=== PATIENT | female | born 1955 | race African-American/Black ===

== ENCOUNTER 2020-12-01 19:43 | Inpatient (IN) | payer MEDICARE, OTHER ==
[~2020-12-01] VITALS: Ht 162.6 cm; Wt 63.5 kg
[~2020-12-01 19:43] MED LIST: ARIP15TA3 PO; BENZ1TAB7 PO; MIRT-121 PO; NA P133E RC
[2020-12-01 20:13] LABS: BASOPHILS % (AUTO) 0.4 % (0.0-2.0); EOSINOPHILS % (AUTO) 1.6 % (0.0-6.0); HEMATOCRIT 43 % (33-45); HEMOGLOBIN 14.3 g/dL (11.5-14.8); LYMPHOCYTES # (AUTO) 3.5 /CMM (0.8-4.8); LYMPHOCYTES % (AUTO) 41.9 % (20.0-44.0); MEAN CORPUSCULAR HGB CONC 33 g/dl (31.0-36.0); MEAN CORPUSCULAR VOLUME 89 fL (82-100); MONOCYTES # (AUTO) 0.4 /CMM (0.1-1.30); MONOCYTES % (AUTO) 4.4 % (2.0-12.0); NEUTROPHILS # (AUTO) 4.3 /CMM (1.8-8.9); NEUTROPHILS % (AUTO) 51.7 % (43.0-81.0); PLATELET COUNT (AUTO) 215 /CMM (150-450); WHITE BLOOD COUNT (AUTO) 8.3 K/uL (4.3-11.0)
[2020-12-01 20:52] LABS: CALCIUM, SERUM 9.4 mg/dL (8.5-10.1); CARBON DIOXIDE 28 mmol/L (21-32); CHLORIDE 105 mmol/L (98-107); GLUCOSE 98 mg/dL (74-106); POTASSIUM 4.4 mmol/L (3.5-5.1); SODIUM SERUM 142 mmol/L (136-145); UREA NITROGEN, BLOOD 13 mg/dL (7-18)
--- NOTE | 2020-12-01 20:56 | NUR ---
Call from lab. Rapid covid negative.
[2020-12-01 20:58] LABS: ALANINE AMINOTRANSFERASE 16 U/L (12-78); ALBUMIN 4.2 g/dL (3.4-5.0); ALCOHOL, BLOOD < 3 mg/dL (0-0); ALKALINE PHOSPHATASE 65 U/L (46-116); ASPARTATE AMINOTRANSFERASE 18 U/L (15-37); BILIRUBIN,TOTAL 0.2 mg/dL (0.2-1.0); TOTAL PROTEIN, SERUM 8.2 g/dL (6.4-8.2)
[2020-12-01 21:30] LABS: ACETAMINOPHEN < 0 ug/ml (10-30)
[2020-12-01] MEDS ORDERED: DIVA-76 PO (21:40)
[2020-12-01] MEDS ORDERED: DIPH50CA37 MC (21:40)
[2020-12-01] MEDS ORDERED: HYDR-4303 PO (21:40)
[2020-12-01] MEDS ORDERED: RISP1TAB7 PO (21:40)
[2020-12-01] MEDS ORDERED: LORA-259 PO (21:40)
--- NOTE | 2020-12-01 22:27 | NUR ---
Pt to [facility] via doug.
[2020-12-01] MEDS ORDERED: HYDROCODONE/APAP 5/325MG TABLET PO PRN (23:00)
[2020-12-01] MEDS ORDERED: ACETAMINOPHEN 325 MG TABLET PO PRN (23:00)
[2020-12-01] MEDS ORDERED: MAGNESIUM HYDROXIDE 30 ML UDC PO PRN (23:00)
[2020-12-01] MEDS ORDERED: TEMAZEPAM 7.5 MG CAPSULE PO PRN (23:00)
[2020-12-01] MEDS ORDERED: BLOOD SUGAR DIAGNOSTIC 1 EACH STRIP IN ONE (23:00)
[2020-12-01] MEDS ORDERED: MAG HYDROX/AL HYDROX/SIMETH 30 ML UDC PO PRN (23:00)
[2020-12-01 23:06] VITALS: BP 107/64
[2020-12-01 23:34] VITALS: BP 107/64
--- NOTE | 2020-12-01 23:53 | NUR ---
ADMISSION NOTES: ADMITTED THIS 64Y/O FEMALE PATIENT ADMIT FROM [facility] ER /INTIALLY FROM [facility] [place], PT. ADMITTED TO GPS ON 5150 HOLD , PER HOLD PT. AGITATION, NON COMPLY WITH MEDS, SMOKING IN THE ROOM, RECKLESS BEHAVIOR AND SPEAKS ABOUT ANJALI , NOT FOLLWING DIRECTIONS FROM STAFF ,ASSAULTIVE TOWARDS STAFF ,UPON FACE TO FACE ASSESSMENT PATIENT IS A&O X 2,3 , DELUSIONAL EASILY AGITAED ,DISHELVED, ANXIOUS ,PARANOID , HYPERVERBAL TALKING TO SELF ABOUT ANJALI, DISORGNIZED ,DISHELVED ,EASILY GETS AGITATED,UNCOOPRTIVE ,DENIES SI /HI AT THIS TIME, PT. IS POOR HISTORIAN, POOR INSIGHT ,POOR JUDGEMENT , PT. REFUSED TO SIGNS ADMISSION CONSENT PAPERS , DUE TO MENTAL STATUS / CONFUSED ,BOTH MD AWARE AND NOTIFIED OF THE ADMISSION, BELONGINGS CONTRABAND WERE DONE ,PT. RIGHTS DISCUSS BY HAND DRY CLEANER , PROVIDE THE PT. WITH HANDBOOK, AND MEDICATIONS GUIDE, ENVIRONMENTAL SAFETY CHECK DONE, ENCOURAGED PT. VERBALIZED ANY FEELING CONCERN TO STAFF, ORIENT TO UNIT POLICY, NO ACUTE DISTRESS NOTED,VITAL SIGNS WNL ,DENIES ANY PAIN AT THIS TIME,WILL CONTINUE TO MONITOR FOR Q15 SAFETY AND BEHAVIOR.
[2020-12-02] MEDS: LORAZEPAM 0.5 MG TABLET PO PRN ×4 (02:40→22:00)
--- NOTE | 2020-12-02 02:41 | NUR ---
RN NOTES :ANXIETY PT.C/O FEELING ANXIOUS YELLING,HYPERVERBAL, ATIVAN 1 MG MG PO PRN GIVEN PER PT. REQUEST ,WILL CONTINUE TO MONITOR.
--- NOTE | 2020-12-02 06:27 | NUR ---
RN NOTES: PT. REFUSED AM LABS, PER PT, PT. BEHAVIOR UNCOOPERTIVE ,ANXIOUS, YELLING ,WILL CONTINUITY WITH CARE.
[2020-12-02 08:00] VITALS: BP 138/61
[2020-12-02] MEDS: NICOTINE PATCH (21MG) 21 MG PATCH.TD24 TD SCH (08:43)
--- NOTE | 2020-12-02 08:50 | NUR ---
MEDICATED FOR ANXIETY WITH ATIVAN.
--- NOTE | 2020-12-02 13:49 | NUR ---
GIVEN ATIVAN PO AGAIN FOR NERVOUSNESS.
[2020-12-02] MEDS: DIVALPROEX SODIUM 125 MG CAP.SPRINK PO SCH ×3 (15:41→21:00)
[2020-12-02 16:00] VITALS: BP 110/51
--- NOTE | 2020-12-02 16:28 | NUR ---
[facility].
[2020-12-02] MEDS: risperiDONE-M 0.5 MG TAB.RAPDIS PO SCH (17:00)
--- NOTE | 2020-12-02 17:30 | NUR ---
REFUSAL OF RISPERDAL.
[2020-12-02 20:55] VITALS: BP 101/59
--- NOTE | 2020-12-02 21:20 | NUR ---
RN NOTES: REFUSAL MEDICATION PT. REFUSED NIGHT SCHEDULE MEDS DEPAKOTE SPRINKLE PO, ENCOURAGED X3 STILL REFUSED , PER PT.I DON'T WANT TAKE ANY MEDICATIONS , BEHAVIOR UNCOOPERTIVE ,ANXIOUS, WILL CONTINUITY WITH CARE.
--- NOTE | 2020-12-02 22:01 | NUR ---
ANXIETY PT.C/O FEELING ANXIOUS YELLING,HYPERVERBAL, ATIVAN 1 MG MG PO PRN GIVEN, PER PT. REQUEST ,WILL CONTINUE TO MONITOR.
[2020-12-03] MEDS: ZOLPIDEM TARTRATE 5 MG TABLET PO PRN (00:55)
--- NOTE | 2020-12-03 00:56 | NUR ---
RN NOTES: INSOMNIA PT.C/O UNABLE TO SLEEP, AMBIEN 5 MG PO PRN GIVEN ,PER PT. REQUEST,WILL CONTINUE TO MONITOR.
[2020-12-03 08:00] VITALS: BP 110/63
[2020-12-03] MEDS: risperiDONE-M 0.5 MG TAB.RAPDIS PO SCH ×2 (08:48→16:45)
[2020-12-03] MEDS: DIVALPROEX SODIUM 125 MG CAP.SPRINK PO SCH ×2 (08:48→21:37)
[2020-12-03] MEDS: NICOTINE PATCH (21MG) 21 MG PATCH.TD24 TD SCH (08:52)
[2020-12-03 16:00] VITALS: BP 105/55
--- NOTE | 2020-12-03 16:15 | NUR ---
Phone call: JULIANN spoke to Luis Pfeiffer via phone 1615 pm regarding if the pt will be accepted back to the facility. Admission service representative is out of the office and left a message. Plan:JULIANN will follow up with the facility to verify the pt's re-admission back to the facility
[2020-12-03 16:23] LABS: CREATININE 0.9 mg/dL (0.6-1.3)
[2020-12-03 20:25] VITALS: BP 117/63
[2020-12-03] MEDS: LORAZEPAM 0.5 MG TABLET PO PRN (21:48)
--- NOTE | 2020-12-03 21:48 | NUR ---
GPS-RN NOTES: ANXIETY PATIENT C/O FEELING ANXIOUS AND REQUESTED FOR ATIVAN. PRN ATIVAN 1MG PO GIVEN. WILL CONTINUE TO MONITOR FOR PATIENT'S SAFETY.
[2020-12-04] MEDS: ZOLPIDEM TARTRATE 5 MG TABLET PO PRN ×2 (01:19→22:21)
--- NOTE | 2020-12-04 01:20 | NUR ---
GPS-RN NOTES: INSOMNIA PATIENT C/O INABILITY TO SLEEP. ADMINISTERED AMBIEN 5MG PO ORDERED. WILL CONTINUE TO MONITOR FOR PATIENT'S SAFETY.
[2020-12-04 08:00] VITALS: BP 110/63
[2020-12-04] MEDS: DIVALPROEX SODIUM 125 MG CAP.SPRINK PO SCH ×3 (08:41→21:12)
[2020-12-04] MEDS: risperiDONE-M 0.5 MG TAB.RAPDIS PO SCH ×3 (08:42→16:28)
[2020-12-04] MEDS: NICOTINE PATCH (21MG) 21 MG PATCH.TD24 TD SCH (08:42)
--- NOTE | 2020-12-04 08:55 | NUR ---
Phone call: JULIANN spoke to the brother (Sander Gann, and [phone]) via phone at 0855 am regarding the pt's history and discharge planning once the pt is medically discharge from the hospital. Plan: director of therapy services will be available upon request.
--- NOTE | 2020-12-04 09:00 | NUR ---
RN NOTE-PT CONFUSED REFUSING CARE AND MEDS, PARANOID GUARDED THOUGH DENYING ALL. PO INTAKE FAIR WITHDRAWN. ISOLATES IN BED. POOR INTERACTION
--- NOTE | 2020-12-04 09:44 | NUR ---
Initial Discharge Plan: Pt currently resides at [facility] [place] [address] . If the pt is not accepted back to current living facility, SW will work with the pt, support system (brother Jose L Gann [phone] or [phone]) and the MD appropriate discharged planning. SW will form a safe and proper discharge.
[2020-12-04] MEDS ORDERED: OLANZAPINE 10 MG VIAL IM STA (11:44)
--- NOTE | 2020-12-04 12:00 | NUR ---
RN NOTE- DR CAMP SAW PT AND SPOKE TO HER. REFUSES RX. YELLING AT MD. DR CAMP ORDERED ZYPREXA 10 MG IM STAT. COMPLIED WITH. ADMINISTERED W STAFF
--- NOTE | 2020-12-04 15:05 | NUR ---
Phone call: JULIANN spoke to VENU Luis Pfeiffer (Admissions -[phone]) SNF via phone at 1505 pm verifying pt's acceptance at facility once medically discharged from the hospital . Per pt will not be accepted back to the facility due behavior issues and a danger to others. Plan: Tea Bag Packer will coordinate with MD and support system (Brother Atilio Gann, ) to find a safe and alternate placement.
[2020-12-04 16:00] VITALS: BP 110/68
[2020-12-04 20:25] VITALS: BP 101/58
--- NOTE | 2020-12-04 22:22 | NUR ---
GPS-RN NOTES: INSOMNIA PATIENT C/O INABILITY TO SLEEP. ADMINISTERED AMBIEN 5MG PO ORDERED. WILL CONTINUE TO MONITOR FOR PATIENT'S SAFETY.
[2020-12-05] MEDS: LORAZEPAM 0.5 MG TABLET PO PRN ×2 (01:17→22:22)
--- NOTE | 2020-12-05 01:17 | NUR ---
GPS-RN NOTES: ANXIETY PATIENT C/O FEELING ANXIOUS AND REQUESTED FOR ATIVAN. PRN ATIVAN 1MG PO GIVEN. WILL CONTINUE TO MONITOR FOR PATIENT'S SAFETY.
[2020-12-05 08:00] VITALS: BP 112/66
[2020-12-05] MEDS: DIVALPROEX SODIUM 125 MG CAP.SPRINK PO SCH ×2 (08:12→20:59)
[2020-12-05] MEDS: risperiDONE-M 0.5 MG TAB.RAPDIS PO SCH ×2 (08:12→16:01)
[2020-12-05] MEDS: NICOTINE PATCH (21MG) 21 MG PATCH.TD24 TD SCH (08:14)
--- NOTE | 2020-12-05 09:00 | NUR ---
RN NOTE- PT RESPONDING, TALKING TO PEOPLE NOT IN THE ROOM, PARANOID GUARDED THOUGH DENYING ALL. PO INTAKE FAIR WITHDRAWN. ISOLATES IN BED. POOR INTERACTION THOUGH DID TAKE HER RX THIS MORNING
[2020-12-05 16:00] VITALS: BP 121/87
[2020-12-05 20:32] VITALS: BP 109/73
[2020-12-05] MEDS: ZOLPIDEM TARTRATE 5 MG TABLET PO PRN ×2 (22:16→23:28)
--- NOTE | 2020-12-06 06:07 | NUR ---
ANGRY THRU THE NIGHT. SLEPT AFTER THE AMBIEN GIVEN AND CONTINUES TO SLEEP AT 6AM AMBIEN EFFECTIVE. WHEN SHE IS AWAKE SHE IS PARINOED. SHE WILL BE HAVING A CONVERSATION WITH NO BODY, NODING HER HEAD AND APPEARS TO BE ANSWERING QUESTIONS ASKED
[2020-12-06 08:00] VITALS: BP 126/76
[2020-12-06] MEDS: DIVALPROEX SODIUM 125 MG CAP.SPRINK PO SCH ×2 (08:54→21:00)
[2020-12-06] MEDS: NICOTINE PATCH (21MG) 21 MG PATCH.TD24 TD SCH (08:54)
[2020-12-06] MEDS: risperiDONE-M 0.5 MG TAB.RAPDIS PO SCH ×2 (08:54→16:54)
[2020-12-06] MEDS: LORAZEPAM 0.5 MG TABLET PO PRN ×2 (15:37→22:18)
--- NOTE | 2020-12-06 15:37 | NUR ---
RN NOTE PATIENT IS FEELING ANXIOUS, ATIVAN IS GIVEN NEEDED.
[2020-12-06 20:15] VITALS: BP 97/68
[2020-12-06 20:56] VITALS: BP 97/68
--- NOTE | 2020-12-06 21:12 | NUR ---
RN NOTE: PT. REFUSED WEEKLY SKIN ASSESSMENT X 3, STATED," MY SKIN IS GOOD, I TAKE GOOD CARE OF MYSELF." DESPITE OF RISKS & BENEFITS EXPLANATIONS, PT. CONTINUED TO REFUSED SKIN ASSESSMENT.
--- NOTE | 2020-12-06 21:15 | NUR ---
RN NOTE; REFUSED SKIN ASSESSMENT PATIENT REFUSED WEEKLY SKIN ASSESSMENT, STATED," MY SKIN IS GOOD," & CONTINUED TO REFUSE, EASILY AGITATED & ANXIOUS. PATIENT WANTS TO SLEEP & DOES NOT WANT TO BE BOTHERED.
--- NOTE | 2020-12-06 21:27 | NUR ---
RN NOTE: REFUSED DEPAKOTE SPRINKLES CAP PATIENT REFUSED DEPAKOTE 250 MG PO SCHEDULED AT 2100 DESPITE OF RISKS & BENEFIT EXPLANATIONS, PT. STATED," LET ME SLEEP, DON'T BOTHER ME & COVERED HER FACE WITH THE BLANKET." WILL CONTINUE TO MONITOR.
--- NOTE | 2020-12-06 22:19 | NUR ---
RN NOTE: ANXIETY PATIENT IS ANXIOUS, RESTLESS, DELUSIONAL, HYPERVERBAL, TALKING TO HERSELF, PT. REQUESTED TO TAKE ATIVAN AT THIS TIME. PRN ATIVAN 1 MG PO GIVEN . PT. EATING HER SNACK AT THIS TIME. WILL CONTINUE TO MONITOR.
[2020-12-06 23:30] VITALS: BP 106/73
[2020-12-06] MEDS: ZOLPIDEM TARTRATE 5 MG TABLET PO PRN (23:38)
--- NOTE | 2020-12-06 23:39 | NUR ---
RN NOTE: INSOMNIA PATIENT IS AWAKE, VERBALIZED THAT SHE IS UNABLE TO SLEEP & REQUESTED TO TAKE HER SLEEPING MEDICINE. VITALS WNL. PRN AMBIEN 5 MG PO GIVEN. WILL CONTINUE TO MONITOR.
[2020-12-07 08:00] VITALS: BP 107/73
[2020-12-07] MEDS: NICOTINE PATCH (21MG) 21 MG PATCH.TD24 TD SCH (09:00)
[2020-12-07] MEDS: DIVALPROEX SODIUM 125 MG CAP.SPRINK PO SCH ×2 (10:23→21:56)
--- NOTE | 2020-12-07 13:16 | NUR ---
Probable Cause Hearing: Pts [id number] hold was upheld for grave disability.
[2020-12-07 16:00] VITALS: BP 109/72
[2020-12-07] MEDS: risperiDONE-M 0.5 MG TAB.RAPDIS PO SCH (16:54)
[2020-12-07] MEDS: ZOLPIDEM TARTRATE 5 MG TABLET PO PRN (21:56)
[2020-12-08 08:00] VITALS: BP 103/66
[2020-12-08] MEDS: NICOTINE PATCH (21MG) 21 MG PATCH.TD24 TD SCH (08:43)
[2020-12-08] MEDS: DIVALPROEX SODIUM 125 MG CAP.SPRINK PO SCH ×2 (08:49→21:05)
[2020-12-08] MEDS: risperiDONE-M 0.5 MG TAB.RAPDIS PO SCH ×2 (08:49→17:30)
[2020-12-08] MEDS: LORAZEPAM 0.5 MG TABLET PO PRN ×2 (08:49→21:31)
--- NOTE | 2020-12-08 08:49 | NUR ---
GIVEN ATIVAN FOR ANXIETY.
--- NOTE | 2020-12-08 11:10 | NUR ---
SNF Contact: JULIANN contacted VENU ([phone]) from [facility] who stated that the pt will not be accepted back and their directors will reroute the pt to an alternate facility.
--- NOTE | 2020-12-08 11:15 | NUR ---
SNF Referral: JULIANN faxed a referral to [facility] with attn to Trent to the fax number: [phone].
--- NOTE | 2020-12-08 13:30 | NUR ---
QUIET,RESTING IN BED.NO COMPLAINTS OFFERED.
[2020-12-08 16:00] VITALS: BP 98/57
--- NOTE | 2020-12-08 18:52 | NUR ---
VERY COOPERATIVE AND MED COMPLIANT.
[2020-12-08 20:58] VITALS: BP 105/64
--- NOTE | 2020-12-09 06:46 | NUR ---
GPS RN CLOSING NOTES: PATIENT LAYING COMFORTABLE ON BED. SLEPT 9HOURS THIS SHIFT. NO BEHAVIORAL ISSUES THIS SHIFT. NO S/S OF DISTRESS. NO C/O PAIN. RESPIRATION EVEN AND UNLABORED WITH EQUAL RISE AND FALL OF THE CHEST ON ROOM AIR. OFFERED FLUID AND SNACKS TOLERATED THIS SHIFT. ALL PATIENT CARE NEEDS HAVE BEEN MET ANTICIPATED. WILL CONTINUE TO MONITOR FOR SAFETY, MOOD AND BEHAVIOR AND ENDORSE TO AM SHIFT.
[2020-12-09 08:00] VITALS: BP 101/71
[2020-12-09] MEDS: DIVALPROEX SODIUM 125 MG CAP.SPRINK PO SCH ×2 (08:36→21:38)
[2020-12-09] MEDS: risperiDONE-M 0.5 MG TAB.RAPDIS PO SCH ×2 (08:37→17:09)
[2020-12-09] MEDS: NICOTINE PATCH (21MG) 21 MG PATCH.TD24 TD SCH (08:37)
--- NOTE | 2020-12-09 09:00 | NUR ---
RN NOTE- PT ALERT ORIENTED PERSON PLACE. PARANOID GUARDED, PO INTAKE GOOD MED COMPLIANT DENIES SI HI AH VH . PT INTERNALLY PREOCCUPIED RESPONDING TO INTERNAL STIMULUS
--- NOTE | 2020-12-09 11:02 | NUR ---
SNF Contact: JULIANN faxed a clearance to [facility] with attn to Renee to the fax number: [phone].
[2020-12-09 16:00] VITALS: BP 107/72
[2020-12-09 20:20] VITALS: BP 112/69
[2020-12-09] MEDS: LORAZEPAM 0.5 MG TABLET PO PRN (22:25)
--- NOTE | 2020-12-09 22:30 | NUR ---
GPS RN NOTES: PATIENT ASKED FOR ATIVAN D/T ANXIETY. ATIVAN 0.5MG 2TAB/1MG GIVEN PO PRN ORDERED AT 2225. PATIENT IS CURRENTLY LAYING ON BED, NO S/S OF DISTRESS, RESPIRATION EVEN AND UNLABORED WITH EQUAL RISE AND FALL OF THE CHEST ON ROOM AIR. WILL CONTINUE TO MONITOR.
[2020-12-09] MEDS: ZOLPIDEM TARTRATE 5 MG TABLET PO PRN (23:36)
--- NOTE | 2020-12-09 23:40 | NUR ---
GPS RN NOTES: PATIENT REQUESTED FOR SLEEP MEDICATION. AMBIEN 5MG/1TAB GIVEN PO PRN FOR SLEEP AT 2336. WILL CONTINUE TO MONITOR
--- NOTE | 2020-12-10 06:45 | NUR ---
GPS RN NOTES: COVID-19 ANTIGEN SWAB FOR DISCHARGE PLACEMENT DONE, SAMPLE DELIVERED TO THE LABORATORY.
--- NOTE | 2020-12-10 06:48 | NUR ---
GPS RN CLOSING NOTES: PATIENT AWAKE, A/O X2. PATIENT SLEPT 6HOURS THIS SHIFT. NO BEHAVIORAL ISSUES THIS SHIFT. NO S/S OF DISTRESS. NO C/O PAIN. RESPIRATION EVEN AND UNLABORED WITH EQUAL RISE AND FALL OF THE CHEST ON ROOM AIR. OFFERED FLUID AND SNACKS TOLERATED THIS SHIFT. ALL PATIENT CARE NEEDS MET ANTICIPATED. WILL CONTINUE TO MONITOR FOR SAFETY, MOOD AND BEHAVIOR AND ENDORSE TO AM SHIFT.
[2020-12-10 08:00] VITALS: BP 116/71
[2020-12-10] MEDS: risperiDONE-M 0.5 MG TAB.RAPDIS PO SCH (08:30)
[2020-12-10] MEDS: DIVALPROEX SODIUM 125 MG CAP.SPRINK PO SCH (08:31)
[2020-12-10] MEDS: NICOTINE PATCH (21MG) 21 MG PATCH.TD24 TD SCH (08:31)
--- NOTE | 2020-12-10 08:58 | NUR ---
Dr. Wyman gave an order to D/C hold and D/C to [facility], to continue same meds including prn and to follow up with the psych and medical doctors. Addendum: 12/10/20 at 1001 by LAURA ZAYAS RN Dr. dangelo made aware of the discharge and reconciled the meds.
--- NOTE | 2020-12-10 09:32 | NUR ---
Pt. without distress, denies suicidal and homicidal. Belongings ready, discharge papers ready and report given to Shay LANTIGUA) over the facility.
--- NOTE | 2020-12-10 11:52 | NUR ---
Discharge Note: Pt will be discharged to [facility] ([facility]) [place] [address] [place] [address]; ([phone]). Pt will be transported via Amb[facility] at 11AM. Pt does not have anyone for the SW to inform of the discharge. Upon discharge, pt appears to be in a dysphoric mood and presented with a labile affect. Pt denies both suicidal and homicidal ideation as well as auditory and visual hallucinations. Pt appears to be alert and oriented x3 (time, place, and self). Pt appears to be ambulatory with an unsteady gait. Pt appears to be disheveled yet appropriately dressed. Pt will continue to be under the care of psychiatrist, Dr. Wyman, located at [address], [address] [place] [address]; and straight cutter, Dr. Sandy, located at [address] [place] [address]; . Pt was provided with substance abuse referrals and a copy was placed in the pts chart. The Choice of vendor form and the multidisciplinary exit care form was done, printed, signed, and given to the patient.
--- NOTE | 2020-12-10 12:25 | NUR ---
Pt. left the unit via ambulance with belongings and transported via a gurney. Left without distress, V/S taken: BP 137/79, PA 91, temp 97.8, RR 18, oxygen sat 92%.
== END 2020-12-10 12:25 | DRG 885 ==
LOC: ER 19:47 → GPS 21:03
PROVIDERS: ADMIT Psychiatry & Neurology Psychiatry; ATTEND Nurse Practitioner Acute Care
DX: F25.0 Schizoaffective disorder, bipolar type (principal); F41.9 Anxiety disorder, unspecified; G47.00 Insomnia, unspecified; F17.210 Nicotine dependence, cigarettes, uncomplicated; Z73.6 Limitation of activities due to disability; F39 Unspecified mood [affective] disorder; Z20.822 Contact with and (suspected) exposure to COVID-19; F29 Unspecified psychosis not due to a substance or known physiological condition
CPT/HCPCS: 36415; 80048-TC; 80061-TC; 80076-TC; 82565-TC; 82962-TC; 85025-TC; 87081-TC; C9803; G0480; J3490

== ENCOUNTER 2021-02-15 16:44 | Inpatient (IN) | payer MEDICARE, OTHER ==
[~2021-02-15] VITALS: Ht 167.6 cm; Wt 68.0 kg
[~2021-02-15 16:44] MED LIST changes: -ARIP15TA3 PO; -BENZ1TAB7 PO; +DIPH50CA37 MC; +DIVA-76 PO; +HYDR-4303 PO; +LORA-259 PO; -MIRT-121 PO; -NA P133E RC; +RISP1TAB7 PO
--- NOTE | 2021-02-15 16:44 | NUR ---
PT BIBPA FROM CARE FACILITY C/O AGGRESSIVE BEHAVIOR TOWARDS STAFF. PT IS AAOX3, NOT IN RESPIRATORY DISTRESS, V/S STABLE, KEPT RESTED AND COMFORTABLE. WILL CONTINUE TO MONITOR.
[2021-02-15] MEDS ORDERED: MAG30ORA PO (16:51)
[2021-02-15] MEDS ORDERED: MAGN400O6 PO (16:51)
[2021-02-15] MEDS ORDERED: ACET-868 PO (16:51)
[2021-02-15] MEDS ORDERED: RISP0.2515 PO (16:51)
--- NOTE | 2021-02-15 17:20 | NUR ---
URINE SPECIMEN COLLECTED AND SENT TO LAB.
[2021-02-15 17:29] LABS: BILIRUBIN,URINE Negative (NEGATIVE); COLOR,URINE YELLOW (YELLOW); LEUKOCYTE ESTERASE ,URINE Moderate (NEGATIVE); NITRITE, URINE Negative (NEGATIVE); PROTEIN,URINE Negative (NEGATIVE); UGLUCOSE Negative (NEGATIVE); UROBILINOGEN,URINE 0.2 EU/dL (0.2)
--- NOTE | 2021-02-15 17:30 | NUR ---
ER PHLEB AT BEDSIDE FOR BLOOD DRAW.
[2021-02-15 17:38] LABS: BASOPHILS % (AUTO) 0.5 % (0.0-2.0); HEMATOCRIT 42 % (33-45); LYMPHOCYTES # (AUTO) 2.9 /CMM (0.8-4.8); LYMPHOCYTES % (AUTO) 38.3 % (20.0-44.0); MEAN CORPUSCULAR HGB CONC 33 g/dl (31.0-36.0); MEAN CORPUSCULAR VOLUME 89 fL (82-100); MONOCYTES # (AUTO) 0.4 /CMM (0.1-1.30); MONOCYTES % (AUTO) 5.1 % (2.0-12.0); NEUTROPHILS # (AUTO) 4.1 /CMM (1.8-8.9); NEUTROPHILS % (AUTO) 55.1 % (43.0-81.0); PLATELET COUNT (AUTO) 188 /CMM (150-450); RED BLOOD CELL COUNT(AUTO) 4.76 MIL/uL (4.0-5.2); WHITE BLOOD COUNT (AUTO) 7.5 K/uL (4.3-11.0)
[2021-02-15 17:41] LABS: BACTERIA,URINE Few /HPF (None Seen); RBC,URINE 0-2 /HPF (0-2); SQUAMOUS EPITHELIAL CELL,UR Few /HPF (None Seen)
--- NOTE | 2021-02-15 17:55 | NUR ---
CALLED SIMRAN FOR INTAKE OF BED 9 PT. SHE WILL BE IN THE ER IN 60 MIN.
[2021-02-15 17:59] LABS: ALANINE AMINOTRANSFERASE 21 U/L (12-78); ALKALINE PHOSPHATASE 54 U/L (46-116); ASPARTATE AMINOTRANSFERASE 18 U/L (15-37); BILIRUBIN,TOTAL 0.3 mg/dL (0.2-1.0); CALCIUM, SERUM 9.4 mg/dL (8.5-10.1); CARBON DIOXIDE 27 mmol/L (21-32); CHLORIDE 105 mmol/L (98-107); CREATININE 0.9 mg/dL (0.6-1.3); GLUCOSE 87 mg/dL (74-106); POTASSIUM 4.2 mmol/L (3.5-5.1); SODIUM SERUM 141 mmol/L (136-145); TOTAL PROTEIN, SERUM 8.2 g/dL (6.4-8.2); UREA NITROGEN, BLOOD 13 mg/dL (7-18)
[2021-02-15 18:00] LABS: ACETAMINOPHEN < 0 ug/ml (10-30); ALCOHOL, BLOOD < 3 mg/dL (0-0)
--- NOTE | 2021-02-15 18:27 | NUR ---
LAB CALLED, COVID NEG
--- NOTE | 2021-02-15 18:35 | NUR ---
room 211-A
--- NOTE | 2021-02-15 18:45 | NUR ---
SIMRAN SABA CRISIS INVESTIGATIVE SHOPPER AT BEDSIDE FOR EVAL.
--- NOTE | 2021-02-15 18:56 | NUR ---
REPORT GIVEN TO JAYANT FELIX OF GPS FOR OTONIEL.
[2021-02-15] MEDS ORDERED: MAGNESIUM HYDROXIDE 30 ML UDC PO PRN (19:30)
[2021-02-15] MEDS ORDERED: BLOOD SUGAR DIAGNOSTIC 1 EACH STRIP IN ONE (20:00)
[2021-02-15] MEDS: CEPHALEXIN MONOHYDRATE 500 MG CAPSULE PO SCH (21:34)
[2021-02-15 22:00] VITALS: BP 135/76
--- NOTE | 2021-02-16 00:15 | NUR ---
ADMISSION NOTES: ADMITTED THIS 65Y/O FEMALE PATIENT DIRECT ADMIT FROM [facility], PT. ADMITTED TO GPS ON HOLD 515 DTO, INCREASED AGITATION AND AGGRESSIVE BEHAVIOR,THREATING STAFF ,VERBAL ABUSIVE, SCREAMING YELLING,UNABLE REDIRECT,UPON FACE TO FACE ASSESSMENT PATIENT IS A&O X 3 ANXIOUS,UNCOOPERTIVE ,DISORGNIZED, DISHEVELLED ,HYPERVERBAL TALIKG TO SELF,NEEDY DEMEDING, DENIES SI /HI AT THIS TIME, PT. IS POOR HISTORIAN, POOR INSIGHT ,POOR JUDGEMENT , PT. REFUSED TO SIGNS ADMISSION CONSENT PAPERS ,DUE TO UNCOOPERTIVE , BOTH MD AWARE AND NOTIFIED OF THE ADMISSION, BELONGINGS CONTRABAND WERE DONE ,PT. RIGHTS DISCUSS BY POULTRY FIELD SERVICE TECHNICIAN , PROVIDE THE PT. WITH HANDBOOK, AND MEDICATIONS GUIDE, ENVIRONMENTAL SAFETY CHECK DONE, ENCOURAGED PT. VERBALIZED ANY FEELING CONCERN TO STAFF, ORIENT TO UNIT POLICY, NO ACUTE DISTRESS NOTED,VITAL SIGNS WNL ,DENIES ANY PAIN AT THIS TIME,WILL CONTINUE TO MONITOR FOR Q15 SAFETY AND BEHAVIOR. Addendum: 02/16/21 at 0032 by BETSY MARIN RN CORRECTION : ADMITTED THIS 65/O FEMALE PATIENT FORM SOH /ER, PT. INTIALLY FROM [facility]. PT. ADMITTED TO [facility] 5150 GD, DTO . PT. IS NOT DIRECT ADMIT FROM [facility] .
--- NOTE | 2021-02-16 06:44 | NUR ---
RN NOTES: PT. REFUSED SKIN ASSESSMENT AND PICTURES, ENCOURAGED X3 RISKS AND BENEFITS EXPLINED , PT.STILL REFUSED ,PER PT. MY SKIN IS INTACT, WILL CONTINUE WITH PLAN OF CARE.
[2021-02-16 08:00] VITALS: BP 115/71
[2021-02-16] MEDS: CEPHALEXIN MONOHYDRATE 500 MG CAPSULE PO SCH ×2 (09:31→20:37)
[2021-02-16] MEDS: LORAZEPAM 0.5 MG TABLET PO PRN (09:37)
[2021-02-16] MEDS: DIVALPROEX SODIUM 125 MG CAP.SPRINK PO SCH ×3 (13:00→20:37)
[2021-02-16] MEDS ORDERED: DIVALPROEX SODIUM 125 MG CAP.SPRINK PO SCH (13:00)
[2021-02-16] MEDS: risperiDONE-M 0.5 MG TAB.RAPDIS PO SCH ×3 (13:00→17:00)
--- NOTE | 2021-02-16 15:34 | NUR ---
RN NOTE- PT ESCALATION, SCREAMING YELLING AND POSTURING. PT NOT DIRECTABLE. QUANTITATIVE RESEARCHER OFFERED PRN PO RX. PT REFUSES. DR CAMP NOTIFIED. DR CAMP ORDERED ZYPREXA 10 MG AND ATIVAN 2 MG IM STAT. ORDERS COMPLIED WITH. EMERGENCY RX ADMINISTERED W STAFF ASSIST .
[2021-02-16] MEDS ORDERED: OLANZAPINE 10 MG VIAL IM STA (15:37)
[2021-02-16] MEDS ORDERED: LORAZEPAM INJ 2 MG/ML VIAL IM STA (15:37)
--- NOTE | 2021-02-16 15:50 | NUR ---
yelling out loudly and talking to self.dr. miller contacted injections of ativan and zyprexa ordered and given.
[2021-02-16 16:00] VITALS: BP 119/79
--- NOTE | 2021-02-16 18:44 | NUR ---
RESTING IN BED IN RM.
[2021-02-16 20:14] VITALS: BP 145/73
[2021-02-17 08:00] VITALS: BP 96/68
[2021-02-17 09:00] VITALS: BP 93/56
[2021-02-17] MEDS: DIVALPROEX SODIUM 125 MG CAP.SPRINK PO SCH ×2 (09:00→20:33)
[2021-02-17] MEDS: risperiDONE-M 0.5 MG TAB.RAPDIS PO SCH ×2 (09:00→17:00)
--- NOTE | 2021-02-17 10:00 | NUR ---
risperdal and depakote held as bp low see graphic.
[2021-02-17] MEDS: CEPHALEXIN MONOHYDRATE 500 MG CAPSULE PO SCH ×2 (10:17→20:29)
--- NOTE | 2021-02-17 10:18 | NUR ---
SNF Contact: JULIANN contacted Renee ([phone]) from [facility] and confirmed that the pt can return to their facility once she is discharged from the hospital.
--- NOTE | 2021-02-17 11:15 | NUR ---
NOT EATING ORDERED LUNCH.RN OFFERED PT. SOMETHING ELSE.PT.AGEEEABLE.ENCOURAGED TO DRINK MORE FLUIDS.PT. AGREED.
[2021-02-17 11:30] VITALS: BP 92/64
--- NOTE | 2021-02-17 11:30 | NUR ---
DR. CAMP HERE AND MADE AWARE NO PSYCH MEDS GIVEN THIS MORNING BP LOW.STATES HE WILL REVIEW CHART.
--- NOTE | 2021-02-17 12:00 | NUR ---
PT. REQUESTED SOC. SERVICE CONTACT HER BROTHER JOSEPH.KARTIK INFORMED.
--- NOTE | 2021-02-17 12:32 | NUR ---
Family Contact: SW contacted the pts brother, Sander ([phone]), who stated that he wanted the pt to be closer to him in [place] but understands if that cannot be done due to her behaviors. SW stated that she is being accepted back to her previous facility and the pts brother stated that she should return there.
[2021-02-17 16:00] VITALS: BP 98/66
--- NOTE | 2021-02-17 17:03 | NUR ---
Initial Discharge Plan: Pt currently resides at [facility] located at [address] [place] [id number]; ([phone]). Per pt, she would like to return to her home. SW will work with the pt and the MD regarding appropriate discharge planning. SW will form a safe and proper discharge.
--- NOTE | 2021-02-17 17:25 | NUR ---
bp low,risperdal held.
[2021-02-17 20:22] VITALS: BP 93/61
--- NOTE | 2021-02-17 20:33 | NUR ---
GPS/PMO PROJECT MANAGER NOTES: PT. REFUSED HS DIVALPROEX 250MG PO ORDERED. PT. STATED " ITS POISON." OFFERED 3X. EXPLAINED RISK AND BENEFITS. PT. STILL REFUSED.
[2021-02-18 08:00] VITALS: BP 114/60
[2021-02-18] MEDS: CEPHALEXIN MONOHYDRATE 500 MG CAPSULE PO SCH ×2 (08:34→21:09)
[2021-02-18] MEDS: DIVALPROEX SODIUM 125 MG CAP.SPRINK PO SCH ×2 (08:39→21:10)
[2021-02-18] MEDS: risperiDONE-M 0.5 MG TAB.RAPDIS PO SCH ×2 (08:39→17:00)
[2021-02-18] MEDS: LORAZEPAM 0.5 MG TABLET PO PRN (08:44)
--- NOTE | 2021-02-18 08:45 | NUR ---
RN-NOTES PATIENT SELECTIVE WITH MEDICATIONS, EXPLAINED RISK AND BENEFITS BUT PATIENT GETS ANGRY,YELLING AND ARGUMENTATIVE WITH THE TUTOR. STATED" I ONLY TAKE ATB ,I DON'T HAVE TO TAKE ANY MEDICATIONS BECAUSE I DON'T HAVE PROBLEMS WITH MY MOOD, JUST GIVE ME MY ANXIETY MEDICATIONS".ATIVAN 1MG P.O GIVEN PRN ORDER.WILL CONT. MONITORING FOR SAFETY AND BEHAVIOR.
--- NOTE | 2021-02-18 09:40 | NUR ---
RN-NOTES PATIENT LYING IN BED AWAKE,ALERT CALM,NO ACUTE DISTRESS NOTED.
[2021-02-18] MEDS ORDERED: OLANZAPINE 10 MG VIAL IM STA (11:59)
--- NOTE | 2021-02-18 12:00 | NUR ---
RN-NOTES PATIENT SCREAMING AND YELLING AT THE PSYCHIATRIST CONRADO YEUNG WHILE EXPLAINING MEDICATIONS TO HER. DR. CAMP GAVE VERBAL ORDER OF ZYPREXA 10MG IM STAT.NOTED AND CARRIED OUT.
--- NOTE | 2021-02-18 17:14 | NUR ---
RN-NOTES PATIENT RISPERDAL 2MG P.O, EXPLAINED RISK AND BENEFITS BUT PATIENT GETS ANGRY,YELLING AND ARGUMENTATIVE WITH THE SENIOR COPYWRITER. STATED" GET AWAY ,I DON'T HAVE TO TAKE ANY MEDICATIONS BECAUSE I DON'T HAVE PROBLEMS ".OFFERED X3
[2021-02-18 22:25] VITALS: BP 138/76
[2021-02-19 08:00] VITALS: BP 90/52
[2021-02-19] MEDS: CEPHALEXIN MONOHYDRATE 500 MG CAPSULE PO SCH ×2 (08:16→20:19)
[2021-02-19] MEDS: DIVALPROEX SODIUM 125 MG CAP.SPRINK PO SCH ×2 (09:00→20:20)
[2021-02-19] MEDS: risperiDONE-M 0.5 MG TAB.RAPDIS PO SCH ×2 (09:00→17:00)
--- NOTE | 2021-02-19 09:51 | NUR ---
RN-NOTES PATIENT SELECTIVE WITH MEDICATIONS, EXPLAINED RISK AND BENEFITS BUT PATIENT GETS ANGRY AND ARGUMENTATIVE WITH THE SALES OPERATIONS SPECIALIST. STATED" I DON'T HAVE PROBLEMS WITH MY MOOD". OFFERED X3
--- NOTE | 2021-02-19 11:36 | NUR ---
RN-NOTES PATIENT REFUSED LAB DRAW DESPITE EXPLANATION RISK AND BENEFITS. DID FEW ATTEMPTS BUT STILL REFUSED.
[2021-02-19 16:03] VITALS: BP 101/57
--- NOTE | 2021-02-19 17:45 | NUR ---
RN-NOTES PATIENT RISPERDAL 2MG P.O.OFFERED X3
[2021-02-19 20:19] VITALS: BP 102/62
[2021-02-20 08:00] VITALS: BP 103/63
[2021-02-20] MEDS: DIVALPROEX SODIUM 125 MG CAP.SPRINK PO SCH ×2 (08:16→21:00)
[2021-02-20] MEDS: CEPHALEXIN MONOHYDRATE 500 MG CAPSULE PO SCH (08:16)
[2021-02-20] MEDS: risperiDONE-M 0.5 MG TAB.RAPDIS PO SCH ×2 (08:16→17:13)
[2021-02-20 16:00] VITALS: BP 101/65
[2021-02-20 19:52] VITALS: BP 114/57
[2021-02-20 20:00] VITALS: BP 114/57
--- NOTE | 2021-02-20 21:00 | NUR ---
NURSES NOTES: PATIENT REFUSED HER DEPAKOTE SPRINKLE 250 MG PER PATIENT, THAT CONTAINS ACID I DON'T NEED ACID IN MY LIFE. PATIENT HOWEVER REQUESTED FOR HER SLEEPING MEDICATION. AMBIEN 5 MG GIVEN ORALLY PRN ORDER. WILL CONTINUE TO MONITOR.
[2021-02-20] MEDS: ZOLPIDEM TARTRATE 5 MG TABLET PO PRN (21:14)
[2021-02-20] MEDS: LORAZEPAM 0.5 MG TABLET PO PRN (22:37)
[2021-02-20 22:39] VITALS: BP 101/73
--- NOTE | 2021-02-20 22:44 | NUR ---
NURSES NOTES: JANI REQUESTED FOR ATIVAN MEDICATION. SHE STATED THAT SHE IS FEELING ANXIOUS AT THIS MOMENT. ATIVAN 1M G GIVEN ORALLY PRN MEDICATION. WILL MONITOR PATIENT.
--- NOTE | 2021-02-21 06:43 | NUR ---
NURSES NOTES: PATIENT IN HER ROOM, ASLEEP AND RESTING COMFORTABLY, NO COMPLAINS OF PAIN OR DISCOMFORT THIS TIME. BED ALARM KEPT ON. WILL ENDORSE PATIENT'S CARE TO DAY SHIFT NURSE.
[2021-02-21 08:00] VITALS: BP 96/59
[2021-02-21] MEDS: DIVALPROEX SODIUM 125 MG CAP.SPRINK PO SCH ×2 (09:00→20:56)
[2021-02-21] MEDS: risperiDONE-M 0.5 MG TAB.RAPDIS PO SCH ×2 (09:00→17:00)
[2021-02-21 16:00] VITALS: BP 104/60
[2021-02-21 20:39] VITALS: BP 123/53
[2021-02-21] MEDS: ZOLPIDEM TARTRATE 5 MG TABLET PO PRN (21:32)
--- NOTE | 2021-02-21 21:33 | NUR ---
RN NOTES: INSOMNIA PT. C/O UNABLE TO SLEEP , PRN AMBIEN 5MG PO GIVEN PER PT. REQUEST, WILL CONTINUE TO MONITOR.
--- NOTE | 2021-02-21 21:47 | NUR ---
RN NOTES: PT. REFUSED WEEKLY SKIN REASSESSMENT AND PICTURES, ENCOURAGED X3 RISKS AND BENEFITS EXPLINED , PT.STILL REFUSED ,PER PT. BEHAVIOR VERY UNCOOPERTIVE, WILL CONTINUE WITH PLAN OF CARE.
[2021-02-21] MEDS: LORAZEPAM 0.5 MG TABLET PO PRN (23:14)
--- NOTE | 2021-02-21 23:16 | NUR ---
RN NOTES: ANXIETY PATIENT C/O FEELING ANXIOUS, HYPERVERBAL , PARANOID ,PRN ATIVAN 1 MG PO GIVEN. WILL CONTINUE TO MONITOR FOR PATIENT'S SAFETY AN D BEHAVIOR.
[2021-02-22 08:00] VITALS: BP 124/82
[2021-02-22] MEDS: risperiDONE-M 0.5 MG TAB.RAPDIS PO SCH ×2 (09:08→16:07)
[2021-02-22] MEDS: DIVALPROEX SODIUM 125 MG CAP.SPRINK PO SCH ×2 (09:08→20:39)
[2021-02-22] MEDS: LORAZEPAM 0.5 MG TABLET PO PRN (09:08)
[2021-02-22] MEDS ORDERED: OLANZAPINE 10 MG VIAL IM PRN (10:30)
[2021-02-22 16:00] VITALS: BP 103/53
[2021-02-22 19:59] VITALS: BP 95/67
[2021-02-22] MEDS: ZOLPIDEM TARTRATE 5 MG TABLET PO PRN (21:30)
--- NOTE | 2021-02-22 21:30 | NUR ---
GPS-RN NOTES: INSOMNIA PATIEN C/O INABILITY TO SLEEP. PRN AMBIEN 5MG PO GIVEN. WILL CONTINUE TO MONITOR.
[2021-02-23 08:00] VITALS: BP 111/73
[2021-02-23] MEDS: DIVALPROEX SODIUM 125 MG CAP.SPRINK PO SCH ×2 (09:46→20:43)
[2021-02-23] MEDS: risperiDONE-M 0.5 MG TAB.RAPDIS PO SCH ×2 (09:56→18:04)
[2021-02-23 16:00] VITALS: BP 98/59
[2021-02-23 17:00] VITALS: BP 120/57
[2021-02-23 19:41] VITALS: BP 99/60
--- NOTE | 2021-02-23 20:10 | NUR ---
RN NOTES: PT.RESTING IN HER ROOM ,AWAKE ALERT, PATIENT IS RISED , WILL CONTINUITY WITH CARE.
[2021-02-23 21:45] VITALS: BP 109/72
[2021-02-23] MEDS: ZOLPIDEM TARTRATE 5 MG TABLET PO PRN (23:22)
--- NOTE | 2021-02-23 23:22 | NUR ---
RN NOTES: INSOMNIA PT. C/O UNABLE TO SLEEP , PRN AMBIEN 5MG PO GIVEN PER PT. REQUEST, WILL CONTINUE TO MONITOR.
[2021-02-24 08:00] VITALS: BP 115/67
[2021-02-24] MEDS: DIVALPROEX SODIUM 125 MG CAP.SPRINK PO SCH ×2 (08:09→20:33)
[2021-02-24] MEDS: risperiDONE-M 0.5 MG TAB.RAPDIS PO SCH ×2 (08:10→16:33)
[2021-02-24 16:00] VITALS: BP 107/63
[2021-02-24] MEDS: LORAZEPAM 0.5 MG TABLET PO PRN (20:33)
[2021-02-24] MEDS: ZOLPIDEM TARTRATE 5 MG TABLET PO PRN (20:33)
[2021-02-25 08:00] VITALS: BP 94/55
[2021-02-25] MEDS: risperiDONE-M 0.5 MG TAB.RAPDIS PO SCH ×2 (08:17→16:23)
[2021-02-25] MEDS: DIVALPROEX SODIUM 125 MG CAP.SPRINK PO SCH ×2 (08:22→20:42)
--- NOTE | 2021-02-25 15:23 | NUR ---
RN-CO: PATIENT REFUSED BLOOD DRAW (VALPROIC LEVEL). ENC SEVERAL TIMES BUT STILL REFUSED.
[2021-02-25 16:00] VITALS: BP 98/69
[2021-02-25 19:34] VITALS: BP 113/55
[2021-02-25] MEDS: ZOLPIDEM TARTRATE 5 MG TABLET PO PRN (21:20)
--- NOTE | 2021-02-25 21:24 | NUR ---
GPS RN NOTES: PATIENT REQUESTED FOR SLEEP MEDICATION. AMBIEN 5MG/1TAB GIVEN PO PRN ORDERED AT 2119. WILL CONTINUE TO MONITOR.
--- NOTE | 2021-02-26 06:41 | NUR ---
GPS RN CLOSING NOTES: PATIENT IS LAYING ON BED SLEEPING. PATIENT SLEPT 8HR THIS SHIFT. PATIENT TOOK HER MEDICATIONS PO THIS SHIFT. NO BEHAVIORAL ISSUES THIS SHIFT. NO S/S OF DISTRESS. RESPIRATION EVEN AND UNLABORED WITH EQUAL RISE AND FALL OF THE CHEST ON ROOM AIR. ALL PATIENT CARE NEEDS HAVE BEEN MET ANTICIPATED. WILL CONTINUE TO MONITOR FOR SAFETY, MOOD AND BEHAVIOR AND ENDORSE TO AM SHIFT.
[2021-02-26 08:00] VITALS: BP 106/65
[2021-02-26] MEDS: risperiDONE-M 0.5 MG TAB.RAPDIS PO SCH ×2 (08:24→17:11)
[2021-02-26] MEDS: DIVALPROEX SODIUM 125 MG CAP.SPRINK PO SCH ×4 (08:24→17:11)
--- NOTE | 2021-02-26 12:00 | NUR ---
gps ear specialist: notes depakote dose too close to give, next dose at 1300. pt had dose this morning before dose was increase by dr. miller.
[2021-02-26] MEDS: LORAZEPAM 0.5 MG TABLET PO PRN ×2 (12:51→19:52)
[2021-02-26 16:05] VITALS: BP 106/69
--- NOTE | 2021-02-26 19:53 | NUR ---
RN NOTE: ANXIETY PATIENT C/O FEELING ANXIOUS, RESTLESS & NOTED TO BE HYPERVERBAL, PARANOID. PRN ATIVAN 1 MG PO GIVEN. WILL CONTINUE TO MONITOR FOR PATIENT'S SAFETY AND BEHAVIOR.
[2021-02-26 20:00] VITALS: BP 112/70
[2021-02-26 20:13] VITALS: BP 112/70
[2021-02-26] MEDS: ZOLPIDEM TARTRATE 5 MG TABLET PO PRN (21:10)
--- NOTE | 2021-02-26 21:11 | NUR ---
RN NOTE: INSOMNIA PT. VERBALIZED THAT SHE IS UNABLE TO SLEEP & REQUESTED TO TAKE SLEEPING MEDICINE, PRN AMBIEN 5MG PO GIVEN PER PT. REQUEST. WILL CONTINUE TO MONITOR.
[2021-02-27 08:00] VITALS: BP 117/81
[2021-02-27] MEDS: risperiDONE-M 0.5 MG TAB.RAPDIS PO SCH ×2 (08:51→17:33)
[2021-02-27] MEDS: DIVALPROEX SODIUM 125 MG CAP.SPRINK PO SCH ×3 (08:52→17:32)
[2021-02-27] MEDS: LORAZEPAM 0.5 MG TABLET PO PRN (09:05)
[2021-02-27] MEDS: MAG HYDROX/AL HYDROX/SIMETH 30 ML UDC PO PRN (12:27)
[2021-02-27 16:00] VITALS: BP 116/75
--- NOTE | 2021-02-27 20:00 | NUR ---
RN NOTE: REFUSED VITALS PATIENT REFUSED VITALS X 3 DESPITE OF RISKS & BENEFITS EXPLANATIONS. PATIENT IS NON COMPLAINT, UNCOOPERATIVE & EASILY AGITATED.
[2021-02-27] MEDS: ZOLPIDEM TARTRATE 5 MG TABLET PO PRN (21:52)
[2021-02-27] MEDS: ACETAMINOPHEN 325 MG TABLET PO PRN (22:43)
--- NOTE | 2021-02-27 22:43 | NUR ---
RN NOTE: REFUSED TYLENOL INITIALLY PATIENT REQUESTED TO TAKE TYLENOL FOR ABDOMINAL PAIN, ONCE MEDICATION WAS OPENED & OFFERED TO THE PATIENT, PATIENT REFUSED TO TAKE TYLENOL 650 MG & STATED," I DON'T TRUST YOU, I DON'T WANT IT." TYLENOL 650 MG WAS WASTED DUE TO PATIENT'S REFUSAL. PATIENT IS RESTING IN BED COMFORTABLY AT THIS TIME. NO C/O PAIN VERBALIZED AT THIS TIME. WILL CONTINUE TO MONITOR.
[2021-02-28 08:00] VITALS: BP 90/60
[2021-02-28] MEDS: risperiDONE-M 0.5 MG TAB.RAPDIS PO SCH ×2 (09:17→16:45)
[2021-02-28] MEDS: DIVALPROEX SODIUM 125 MG CAP.SPRINK PO SCH ×3 (09:17→16:54)
[2021-02-28] MEDS: MAG HYDROX/AL HYDROX/SIMETH 30 ML UDC PO PRN (09:50)
[2021-02-28 16:00] VITALS: BP 108/68
[2021-02-28] MEDS: LORAZEPAM 0.5 MG TABLET PO PRN (17:41)
[2021-02-28] MEDS: ACETAMINOPHEN 325 MG TABLET PO PRN (18:26)
--- NOTE | 2021-02-28 20:00 | NUR ---
GPS-RN NOTES: PATIENT REFUSED WEEKLY SKIN BODY ASSESSMENT.
[2021-02-28 20:09] VITALS: BP 91/49
[2021-02-28] MEDS: ZOLPIDEM TARTRATE 5 MG TABLET PO PRN (21:22)
--- NOTE | 2021-02-28 21:23 | NUR ---
GPS-RN NOTES: INSOMNIA PATIENT C/O INABILITY TO SLEEP. PRN AMBIEN 5MG PO GIVEN. WILL CONTINUE TO MONITOR FOR PATIENT'S SAFETY.
[2021-03-01 08:00] VITALS: BP 110/69
[2021-03-01] MEDS: risperiDONE-M 0.5 MG TAB.RAPDIS PO SCH (08:06)
[2021-03-01] MEDS: DIVALPROEX SODIUM 125 MG CAP.SPRINK PO SCH ×2 (08:06→12:57)
[2021-03-01] MEDS: MAG HYDROX/AL HYDROX/SIMETH 30 ML UDC PO PRN (08:37)
--- NOTE | 2021-03-01 09:45 | NUR ---
Family Contact: JULIANN contacted the pts brother, Sander ([phone]), and informed him that the pt is being discharged back to [facility].
--- NOTE | 2021-03-01 10:03 | NUR ---
Discharge Note: Pt will be discharged to [facility] ([facility]) located at [address] [place] [address]; ([phone]). Pt will be transported via Amb[facility] at 12PM. Pt does not have anyone for the SW to inform of the discharge. Upon discharge, pt appears to be in a dysphoric mood and presented with a labile affect. Pt denies both suicidal and homicidal ideation as well as auditory and visual hallucinations. Pt appears to be alert and oriented x3 (time, place, and self). Pt appears to be ambulatory with an unsteady gait. Pt appears to be disheveled yet appropriately dressed. Pt will continue to be under the care of psychiatrist, Dr. Wyman, located at [address] [address] [facility] [address], [address] [place] [address]; and computer operations technician, Dr. Sandy, located at [address] [place] [address]; . Pt was provided with substance abuse referrals and a copy was placed in the pts chart. The Choice of vendor form and the multidisciplinary exit care form was done, printed, signed, and given to the patient.
--- NOTE | 2021-03-01 14:30 | NUR ---
ELECTRICAL PROJECT MANAGER NOTE :PT discharged in stable condition to [facility] .Patient medications reviewed and med reconciliation explained to patient .Compliant with medications and treatment .patient denies SI/HI/AVH .Behavior improved psychiatric treatment plans met ,medical treatment plans deferred for continual monitoring .Medications reconcile with and Jose ESCAPEMENT MAKER .Returned personal belongings to patient.Report given to Shay CARRASQUILLO nurse in facility .Pt transported via Ambul[facility] at 14:30 .
== END 2021-03-01 14:30 | DRG 885 ==
LOC: ER 16:51 → GPS 18:38
PROVIDERS: ADMIT Psychiatry & Neurology Psychiatry; ATTEND Nurse Practitioner Acute Care
DX: F25.0 Schizoaffective disorder, bipolar type (principal); N39.0 Urinary tract infection, site not specified; F41.9 Anxiety disorder, unspecified; F17.210 Nicotine dependence, cigarettes, uncomplicated; Z79.899 Other long term (current) drug therapy; K21.9 Gastro-esophageal reflux disease without esophagitis; G40.909 Epilepsy, unspecified, not intractable, without status epilepticus; D64.9 Anemia, unspecified; F29 Unspecified psychosis not due to a substance or known physiological condition; Z73.6 Limitation of activities due to disability; B96.89 Other specified bacterial agents as the cause of diseases classified elsewhere; Z91.14 Patient's other noncompliance with medication regimen; Z91.19 Patient's noncompliance with other medical treatment and regimen
CPT/HCPCS: 36415; 80048-TC; 80076-TC; 80164-TC; 81001; 82962-TC; 85025-TC; 87081-TC; 87086-TC; C9803; G0480; J2060; J3490